=== PATIENT | male | born 1945 | race Caucasian/White ===

== ENCOUNTER 2019-12-12 07:27 | Outpatient (CLI) | payer MEDICARE, SELFPAY ==
--- NOTE | ~2019-12-12 | NM_ITS ---
NM bone scan whole body INDICATION: Prostate cancer TECHNIQUE: The patient was injected with 25.4 mCi Tc 99m HDP. Gamma camera images of the region of i nterest and whole body were obtained. COMPARISON: CT dated 12/12/2019 FINDINGS: There is mild uptake in the right maxilla, likely odontogenic. There is symmetric uptake in the shoulders, knees and feet, consistent with degenerative joint disease. There is uptake in the re gion of the sternoclavicular joints, also likely degenerative. No scintigraphic evidence for osseous metastases. IMPRESSION: 1: No scintigraphic evidence for osseous metastases. 2: Polyarticular joint uptake, consistent with degenerative joint disease. Reviewed, dictated and finalized at location A. ENGER REPRESENTATIVE
--- NOTE | ~2019-12-12 | CT_ITS ---
EXAMINATION: CT abdomen pelvis w con EXAM DATE: 12/12/2019 08:16 INDICATION: Prostate cancer. TECHNIQUE: Spiral CT of the abdomen and pelvis was performed following intravenous injection of 100 m L Omnipaque 350. Axial, coronal and sagittal images were reviewed. The dose-length product (DLP) fo r this examination was 552.13 mGy-cm. The exposure was tailored according to patient size (auto mA e xposure control), and iterative reconstruction (ASIR) was used as additional dose reduction technique . There is no prior study for comparison. FINDINGS: Pathologically enlarged right infrahilar lymph nodes, largest image measuring 1.5 x 2.3 cm. There is lymph node near the gastroesophageal junction measuring 1.3 x [address] with contras t is indicated. The liver, spleen, adrenal glands and pancreas are unremarkable. Gallbladder is unr emarkable. No biliary obstruction. Portal and splenic veins are patent. Kidneys enhance symmetrica lly. There is no hydronephrosis. Patient has likely had prostatectomy. Calcification in the bladde r base measuring 9 mm, consistent with bladder stone. The bladder is otherwise unremarkable. There is no retroperitoneal or pelvic lymphadenopathy. There is moderate scattered arteriosclerotic disea se. The appendix is normal. The stomach and small bowel are unremarkable. There is expected amount of c olonic stool. No free intraperitoneal gas. The heart is normal in size. There are no pericardial or pleural effusions. Small amount of ill-defined right lower lobe airspace disease measuring about 1 cm just above the diaphragm, nonspecific. There are about 8 bibasilar pulmonary nodules, larger at the left lung base measuring up to 10 mm. There are no osteoblastic or osteolytic lesions identifie d. IMPRESSION: 1. Scattered basilar pulmonary nodules, suspicious for metastatic disease. 2. Right infrahilar lymphadenopathy. Chest CT with contrast indicated. 3. Bladder base calcification probably intraluminal stone. I discussed adenopathy, recommendation with urology family consultant nurse Oneida in the office of the order ing clinician Manfred Correa MD at 12/12/2019 15:49 RADIOISOTOPE TECHNICIAN. Reviewed, dictated and finalized at location A. OISOTOPE TECHNICIAN IMPRESSION: 1. Scattered basilar pulmonary nodules, suspicious for metastatic disease. 2. Right infrahilar lymphadenopathy. Chest CT with contrast indicated. 3. Bladder base calcification probably intraluminal stone. I discussed adenopathy, recommendation with urology family consultant nurse Oneida alvarez t he office of the ordering clinician Manfred Correa MD at 12/12/2019 15:49 CS T.
[2019-12-12 08:00] LABS: Blood Urea Nitrogen 36 mg/dL (8-26); Estimated Glomerular Filt Rate > 60
== END 2019-12-12 07:28 | disposition home or self-care (01) ==
LOC: ANHIMG 07:31
PROVIDERS: PCP Internal Medicine; Visit Provider Urology
DX: C61 Malignant neoplasm of prostate (principal); R59.0 Localized enlarged lymph nodes; N32.89 Other specified disorders of bladder
CPT/HCPCS: 74177; 78306; A9561; Q9967

== ENCOUNTER → 2020-07-23 14:04 | Outpatient (CLI) | payer MEDICARE, SELFPAY ==
--- NOTE | ~2020-07-23 | CT_ITS ---
EXAMINATION: CT brain wo con DATE: 07/23/2020 14:36 INDICATION: Dizziness TECHNIQUE: Computed tomography (CT) of the head was performed without intravenous contrast. The mA wa s adjusted according to patient size. Iterative reconstruction technique was employed. Exam dose: 59 9.57 mGy-cm total exam DLP. COMPARISON: None FINDINGS: Right vertebral artery and bilateral carotid siphon internal carotid artery calcifications. There is nonspecific diminished attenuation of the cerebral white matter, likely due to chronic small vessel ischemic changes. No intracranial mass lesion or hemorrhage, midline shift or mass effect is detected. No evidence of c erebrovascular accident. No subdural or epidural hematoma. The orbital contents are unremarkable. The mastoid air cells and included paranasal sinuses are unremarkable. No skull fracture or bone destruction. IMPRESSION: Cerebral atherosclerosis and chronic small vessel ischemic changes of the cerebral white matter No acute intracranial finding Reviewed, dictated and finalized at Location A. Reviewed, dictated and finalized at location B.
--- NOTE | ~2020-07-23 | CT_ITS ---
EXAMINATION: CT chest abdomen pelvis w con DATE: 07/23/2020 14:36 INDICATION: Malignant neoplasm of prostate gland and the: Restaging TECHNIQUE: Computed tomography (CT) of the chest, abdomen, and pelvis was performed with 100 cc Omnip aque 350 intravenous contrast. Automated exposure control and iterative reconstruction technique were employed. Exam dose: 989.82 mGy-cm total exam DLP. COMPARISON: 12/12/2019 CT abdomen pelvis FINDINGS: CHEST CT: Normal heart size. Coronary artery calcification. No pericardial effusion. There is thoracic aortic and great vessel calcification. No thoracic aortic aneurysm or dissection. There are multiple nonenlarged superior mediastinal, right paratracheal, precarinal, aortopulmonary w indow, subcarinal and paraesophageal lymph nodes. There is bilateral hilar lymph node prominence. The se are nonspecific. There are multiple calcified right hilar nodes consistent with old granulomatous disease. There are some calcified pulmonary granulomas. Occasional scattered pulmonary nodules are noted, some too small to definitively characterize, including the followin mm right upper lobe nodule (series 4 image 30) 3.5 mm opacity along minor fissure (image 55) Stable 6 mm pleural-based opacity (image 105) Stable 2.6 mm nodule in the posteromedial right lower lobe (image 100) Stable 5.5 mm opacity in the left lower lobe (image 91) Stable 4.5 mm nodule in the left lower lobe (image 94) Stable 6.4 mm left lower lobe nodule (image 97) ABDOMEN/PELVIS CT: The liver, gallbladder, bile ducts, pancreas, pancreatic duct and spleen are unremarkable other than some calcified splenic granulomas. Normal morphology of the adrenal glands. Small exophytic lower pole right renal cysts. No suspicious renal mass lesion. No urinary tract calcu yordy or hydroureteronephrosis. There is an approximately 6 x 8 mm calculus in the urinary bladder. Status post prostatectomy. There is atherosclerotic calcification of the abdominal aorta and iliac arteries but no aneurysm. No intraperitoneal or retroperitoneal or pelvic mass lesion or adenopathy or ascites is detected. Diffuse idiopathic skeletal hyperostosis of the thoracic spine. There is mild degenerative change of the lumbar spine. No suspicious osteolytic or osteoblastic lesions are noted. IMPRESSION: Mild nonspecific mediastinal and hilar lymph node prominence Scattered subcentimeter pulmonary nodules, likely due to old granulomatous disease. There are some ca lcified pulmonary granulomas. Recommend 6-[address] thorax follow-up. Status post prostatectomy Small exophytic right renal cysts Reviewed, dictated and finalized at Location A. Reviewed, dictated and finalized at location B. IMPRESSION: Mild nonspecific mediastinal and hilar lymph node prominence Scattered subcentimeter pulmonary nodules, likely due to old granulomatous dise ase. There are some calcified pulmonary granulomas. Recommend 6-[address] tho rax follow-up. Status post prostatectomy Small exophytic right renal cysts
[2020-07-23 14:26] LABS: Estimated Glomerular Filt Rate > 60
== END ==
PROVIDERS: PCP Internal Medicine
DX: C61 Malignant neoplasm of prostate (principal); R42 Dizziness and giddiness; R91.8 Other nonspecific abnormal finding of lung field; N28.1 Cyst of kidney, acquired; I67.2 Cerebral atherosclerosis
CPT/HCPCS: 70450; 71260; 74177; Q9967

== ENCOUNTER 2022-10-26 13:42 | Outpatient (CLI) | payer MEDICARE, SELFPAY ==
--- NOTE | ~2022-10-26 | PE_ITS ---
EXAMINATION: PET_PETPSMAST_PT DATE: 10/26/2022 15:44 INDICATION: Prostate cancer. TECHNIQUE: 9.001 mCi of piflufolastat F-18 was administered intravenously. Low dose computed tomograp hy (CT) images were acquired from the base of the brain to the proximal thighs for attenuation correc tion and anatomic localization. Automated exposure control was employed. Dose-length product (DLP) wa s 768 mGy-cm. Positron emission tomography (PET) images were acquired in the same distribution. COMPARISON: CT chest, abdomen, and pelvis 07/23/2020 FINDINGS: Head/neck: There is increased activity in the lacrimal glands, major salivary glands, pharynx, and gl ottis without abnormal CT correlate, likely physiologic. There are no pathologically enlarged lymph n odes. Chest: Calcified pulmonary nodules and calcified hilar lymph nodes are consistent with old granulomat ous disease. No pleural effusion. The heart size is normal. There are coronary artery calcifications. No pericardial effusion. There are foci of increased activity in left superior mediastinum and left subclavicular region correlating with masses measuring 4 mm or less, which may be normal ganglia. Abdomen/pelvis/proximal thighs: There is mild elevation of right hemidiaphragm. The liver and gallbla dder are normal. Calcifications in the spleen are consistent with old granulomatous disease. The panc reas, adrenal glands, and left kidney are normal. There is a 10 mm cyst in right kidney. There is inc reased activity in normal-sized aortocaval, left para-aortic, bilateral internal iliac, bilateral ext ernal iliac, and right internal iliac nodes measuring up to 11 x 6 mm in the left para-aortic chain. There are changes of prostatectomy. There are no dilated loops of bowel. There is no free intraperito tamara fluid. There are no abnormal sclerotic lesions of bone. IMPRESSION: 1. Increased activity in normal-sized aortocaval, left para-aortic, bilateral internal iliac, bilater al external iliac, and right internal iliac nodes suspicious for metastatic disease. Reviewed, dictated and finalized at location A. CRUSHER IMPRESSION: 1. Increased activity in normal-sized aortocaval, left para-aortic, bilateral i nternal iliac, bilateral external iliac, and right internal iliac nodes suspici ous for metastatic disease.
== END 2022-10-26 13:43 | disposition home or self-care (01) ==
PROVIDERS: PCP Internal Medicine; Visit Provider Nurse Practitioner Adult Health
DX: C61 Malignant neoplasm of prostate (principal); R59.0 Localized enlarged lymph nodes
CPT/HCPCS: 78815; A9595